=== PATIENT | male | born 1995 | race Caucasian/White ===

== ENCOUNTER 2019-08-23 17:41 | Emergency (ER) | payer SELFPAY ==
[~2019-08-23] VITALS: Ht 165.1 cm; Wt 65.8 kg
--- NOTE | 2019-08-23 17:41 | NUR ---
PATIENT BIBA TO BED 9 AT THIS TIME.
[2019-08-23 17:46] VITALS: BP 117/70
[2019-08-23 17:49] VITALS: BP 117/70
--- NOTE | 2019-08-23 17:49 | NUR ---
PER PD, PT TRYING TO RUN AWAY FROM PD. PD TACKLE PT TO FLOOR, PD BROUGHT PT TO HOSPITAL FOR MEDICAL EVALUATION.
--- NOTE | 2019-08-23 17:49 | NUR ---
PT BIB BY POLICE. PT INTOXICATED, UNABLE TO OBTAIN INFORMATION NOR HX,RX. PD UNABLE TO OBTAIN INFORMATION. PT GIVING DIFFERENT NAMES AND DOES NOT RECALL BIRTHDAY. PT A/OX1. PT WITH PD AT BEDSIDE, SIDE RAIL X2.
--- NOTE | 2019-08-23 17:52 | NUR ---
CHARGE NURSE NOTIFIED OF SITUATION PD AT BEDSIDE
--- NOTE | 2019-08-23 19:44 | NUR ---
PATIENT BIB [employer]. PATIENT EXAMINED BY DR. GONSALEZ. PATIENT MEDICALLY CLEARED AND RELEASED IN CUSTODY IN STABLE CONDITION. ORIGINAL PRE-BOOK FORM GIVEN TO OFFICER MARY.
== END 2019-08-23 19:44 | disposition home or self-care (01) ==
LOC: MED 17:41
DX: F10.129 Alcohol abuse with intoxication, unspecified (principal)
CPT/HCPCS: 99283